=== PATIENT | female | born 1930 | race Caucasian/White ===

== ENCOUNTER 2017-01-29 10:54 | Inpatient (IN) | payer OTHER, MEDICARE ==
[~2017-01-29] VITALS: Ht 149.9 cm; Wt 54.0 kg
[~2017-01-29 10:54] MED LIST: ANTIVERT25 MG PO; ATIVAN0.5 MG PO; ATORVASTATIN CA10 MG PO; BACTRIM,SEPT1 TABLE1 PO; HYDROCHLOROTHIA25 MG PO; KEFLEX500 MG PO; KLOR-CON20 MEQ PO; LISINOPRIL20 MG PO; LORAZEPAM0.5 MG PO; PROTONIX40 MG PO; PYRIDIUM200 MG PO; SYNTHROID25 MCG PO
[2017-01-29 13:33] LABS: EOSINOPHIL (%) 0 % (0-5); HEMATOCRIT 35.2 % (36.0-46.0); IMMATURE GRANULOCYTE (%) 0.2 % (0.0-0.7); INSTRUMENT ABS NEUTROPHIL CT 2.8 K/uL; LYMPHOCYTE COUNT 0.8 K/uL (1.0-2.8); MCH 31.9 PG (29.0-34.0); MCHC 34.7 G/DL (30.0-36.0); MCV 91.9 FL (83-99); MEAN PLAT.VOLUME 9.2 uM^3 (9.5-12.4); MONOCYTE (%) 15.2 % (3-12); MONOCYTE COUNT 0.6 K/uL (0-0.8); NEUTROPHIL (%) 66.1 % (45-76); NEUTROPHIL COUNT 2.8 K/uL (1.8-6.4); PLATELET COUNT 153 K/uL (156-360); RBC DIS.WIDTH-CV 12.9 % (11.8-14.6); RBC DIS.WIDTH-SD 43.7 % (39-53); RED BLOOD COUNT 3.83 M/uL (3.80-5.20); WHITE BLOOD COUNT 4.2 K/uL (4.1-10.2)
[2017-01-29 13:41] LABS: CHLORIDE 99 mEq/L (99-109); POTASSIUM 3.9 mEq/L (3.7-5.4); SODIUM 132 mEq/L (136-147)
[2017-01-29 13:43] LABS: GLUCOSE 90 mg/dL (70-99)
[2017-01-29 13:44] LABS: ANION GAP 13 MEQ/L (2-14)
[2017-01-29 13:47] LABS: GFR ESTIMATE (CALCULATED) 30 mL/min/
[2017-01-29 13:48] LABS: UREA NITROGEN (BUN) 28 mg/dL (9-23)
[2017-01-29 13:56] LABS: INFLUENZA A VIRAL ANTIGEN POSITIVE; INFLUENZA B VIRAL ANTIGEN NEGATIVE
[2017-01-29 14:13] LABS: ADD MIUA? YES; BILIRUBIN NEGATIVE; BLOOD NEGATIVE; COLOR AMBER ((YELLOW)); GLUCOSE (STRIP) NEGATIVE; KETONES 5; LEUKOCYTES MODERATE; NITRITE NEGATIVE; PROTEIN (STRIP) 30; SPECIFIC GRAVITY 1.015 (1.000-1.030); UROBILINOGEN 0.2 MG/DL (0.2-1.0)
[2017-01-29 14:34] LABS: BACTERIA 1+ /HPF; EPITHELIAL CELLS RARE /HPF; GRANULAR CASTS 15-20 /LPF; MUCUS TRACE /LPF; RED BLOOD CELLS 0-5 /HPF (0-5); UCUL ADDED? NO; WHITE BLOOD CELLS 30-40 /HPF (0-5)
[2017-01-29] MEDS ORDERED: KLOR-CON M2020 MEQ PO (15:55)
[2017-01-29] MEDS ORDERED: MECLIZINE HCL25 MG PO (15:55)
[2017-01-29] MEDS ORDERED: NEXIUM40 MG PO (15:56)
[2017-01-29] MEDS ORDERED: HYDROCHLOROTHIA50 MG PO (15:56)
[2017-01-29] MEDS ORDERED: VITAMIN D2000 UNI1 PO (15:57)
[2017-01-29] MEDS ORDERED: CALCIUM600 M1 PO (15:57)
[2017-01-29] MEDS ORDERED: CENTRUM SILVER1 EAC3 PO (15:57)
[2017-01-29 17:29] VITALS: BP 91/62
[2017-01-29 19:10] VITALS: BP 126/58
[2017-01-30 00:58] VITALS: BP 137/63
[2017-01-30 07:32] LABS: ANION GAP 10 MEQ/L (2-14); CHLORIDE 100 MEQ/L (99-109); GFR ESTIMATE (CALCULATED) 38 mL/min/; GLUCOSE 99 mg/dL (70-99); POTASSIUM 3.4 MEQ/L (3.7-5.4); SAMPLE HEMOLYSIS CHECK 0; SAMPLE ICTERIC CHECK 0; SAMPLE LIPEMIA CHECK 0; SODIUM 134 MEQ/L (136-147); UREA NITROGEN (BUN) 30 mg/dL (9-23)
[2017-01-30 07:39] VITALS: BP 142/62
[2017-01-30 12:00] VITALS: BP 140/66
[2017-01-30 16:27] VITALS: BP 116/59
[2017-01-30 20:00] VITALS: BP 123/58
[2017-01-31] VITALS (7 sets, daily range): BP systolic 111–132; BP diastolic 58–70
[2017-01-31 12:32] LABS: HEMATOCRIT 33.8 % (36.0-46.0); MCH 31.6 PG (29.0-34.0); MCHC 32.8 G/DL (30.0-36.0); MEAN PLAT.VOLUME 10.1 uM^3 (9.5-12.4); NRBC (%) 0.4 /100 WBC (0-0); PLATELET COUNT 162 K/uL (156-360); RBC DIS.WIDTH-CV 13.5 % (11.8-14.6); RED BLOOD COUNT 3.51 M/uL (3.80-5.20); WHITE BLOOD COUNT 4.8 K/uL (4.1-10.2)
[2017-01-31 13:05] LABS: MCV 96.3 FL (83-99)
[2017-01-31 16:06] LABS: MCH 31.2 PG (29.0-34.0); MCHC 34.4 G/DL (30.0-36.0); MCV 90.7 FL (83-99); MEAN PLAT.VOLUME 9.2 uM^3 (9.5-12.4); PLATELET COUNT 150 K/uL (156-360); RBC DIS.WIDTH-SD 42.9 % (39-53); RED BLOOD COUNT 3.53 M/uL (3.80-5.20)
[2017-01-31 16:15] LABS: ANION GAP 9 MEQ/L (2-14); CHLORIDE 99 MEQ/L (99-109); GFR ESTIMATE (CALCULATED) 56 mL/min/; GLUCOSE 93 mg/dL (70-99); POTASSIUM 2.7 MEQ/L (3.7-5.4); SAMPLE HEMOLYSIS CHECK 0; SAMPLE ICTERIC CHECK 0; SAMPLE LIPEMIA CHECK 0; SODIUM 133 MEQ/L (136-147); UREA NITROGEN (BUN) 18 mg/dL (9-23)
[2017-02-01 03:27] LABS: C DIFF TOXIN NEGATIVE (NEGATIVE)
[2017-02-01 03:34] LABS: PROBE CHECK PASS; SPECIMEN PROCESSING CONTROL PASS
[2017-02-01 04:58] VITALS: BP 148/68
[2017-02-01 07:40] LABS: HEMATOCRIT 34.1 % (36.0-46.0); MCH 31.1 PG (29.0-34.0); MCHC 33.7 G/DL (30.0-36.0); MCV 92.2 FL (83-99); MEAN PLAT.VOLUME 9.2 uM^3 (9.5-12.4); PLATELET COUNT 155 K/uL (156-360); RBC DIS.WIDTH-CV 13.1 % (11.8-14.6); RBC DIS.WIDTH-SD 44.1 % (39-53)
[2017-02-01 07:46] LABS: WHITE BLOOD COUNT 5.8 K/uL (4.1-10.2)
[2017-02-01 08:02] VITALS: BP 148/78
[2017-02-01 08:17] LABS: ANION GAP 7 MEQ/L (2-14); CHLORIDE 105 MEQ/L (99-109); GFR ESTIMATE (CALCULATED) > 59 mL/min/; GLUCOSE 81 mg/dL (70-99); POTASSIUM 3.6 MEQ/L (3.7-5.4); SAMPLE HEMOLYSIS CHECK 0; SAMPLE ICTERIC CHECK 0; SAMPLE LIPEMIA CHECK 0; SODIUM 135 MEQ/L (136-147); UREA NITROGEN (BUN) 14 mg/dL (9-23)
[2017-02-01 16:24] VITALS: BP 152/76
[2017-02-01] MEDS ORDERED: OSELTAMIVIR PHO30 MG PO (18:50)
[2017-02-01 19:00] VITALS: BP 146/78
== END 2017-02-01 20:33 | disposition home or self-care (01) | DRG 690 ==
LOC: EME → EDBD 10:54 → EME 10:54 → EDOF 15:21 → 5WEST 15:21
PROVIDERS: Family Medicine; Physician Assistant; Physician Assistant Medical
DX: N39.0 Urinary tract infection, site not specified (principal); E86.0 Dehydration; J10.1 Influenza due to other identified influenza virus with other respiratory manifestations; E87.6 Hypokalemia; I10 Essential (primary) hypertension; K21.9 Gastro-esophageal reflux disease without esophagitis; M19.90 Unspecified osteoarthritis, unspecified site; R53.1 Weakness
CPT/HCPCS: 71020; 80048; 81003; 85025; 85027; 87086; 87493; 87502; 94640; 99202; 99281; 99285; G0378; J0696; J3480; J7040; J7050

== ENCOUNTER 2017-08-13 13:18 | Inpatient (IN) | payer OTHER, MEDICARE ==
[~2017-08-13] VITALS: Ht 149.9 cm; Wt 54.7 kg
[~2017-08-13 13:18] MED LIST changes: +CALCIUM600 M1 PO; +CENTRUM SILVER1 EAC3 PO; +HYDROCHLOROTHIA50 MG PO; +KLOR-CON M2020 MEQ PO; +MECLIZINE HCL25 MG PO; +NEXIUM40 MG PO; +OSELTAMIVIR PHO30 MG PO; +VITAMIN D2000 UNI1 PO
[2017-08-13 14:22] LABS: HEMATOCRIT 34.4 % (36.0-46.0); MCH 31.5 PG (29.0-34.0); MCHC 35.8 G/DL (30.0-36.0); MCV 88.2 FL (83-99); MEAN PLAT.VOLUME 8.8 uM^3 (9.5-12.4); PLATELET COUNT 284 K/uL (156-360); RBC DIS.WIDTH-CV 13.2 % (11.8-14.6); RBC DIS.WIDTH-SD 42.2 % (39-53); WHITE BLOOD COUNT 8.5 K/uL (4.1-10.2)
[2017-08-13 14:34] LABS: CHLORIDE 96 mEq/L (99-109)
[2017-08-13 14:35] LABS: SODIUM 135 mEq/L (136-147)
[2017-08-13 14:36] LABS: POTASSIUM 2.8 mEq/L (3.7-5.4)
[2017-08-13 14:37] LABS: GLUCOSE 88 mg/dL (70-99)
[2017-08-13 14:38] LABS: ANION GAP 11 MEQ/L (2-14)
[2017-08-13 14:39] LABS: TOTAL BILIRUBIN 1.1 mg/dL (0.0-1.0)
[2017-08-13 14:40] LABS: ALKALINE PHOSPHATASE 89 IU/L (3-129)
[2017-08-13 14:41] LABS: GFR ESTIMATE (CALCULATED) 45 mL/min/
[2017-08-13 14:42] LABS: DIRECT BILIRUBIN 0.4 mg/dL (0.0-0.3); UREA NITROGEN (BUN) 19 mg/dL (9-23)
[2017-08-13 14:43] LABS: TROP-I INTERPRETATION NEGATIVE; TROPONIN-I < 0.01 ng/mL (0.0-0.30)
[2017-08-13 14:44] LABS: LIPASE 49 U/L (1.0-51.0)
[2017-08-13 16:35] LABS: ADD MIUA? NO; BILIRUBIN NEGATIVE; BLOOD NEGATIVE; COLOR YELLOW ((YELLOW)); GLUCOSE (STRIP) NEGATIVE; KETONES NEGATIVE; LEUKOCYTES NEGATIVE; NITRITE NEGATIVE; PROTEIN (STRIP) NEGATIVE; SPECIFIC GRAVITY 1.015 (1.000-1.030); UROBILINOGEN 0.2 MG/DL (0.2-1.0)
[2017-08-14] VITALS (7 sets, daily range): BP systolic 118–167; BP diastolic 60–76
[2017-08-14 05:33] LABS: C DIFF TOXIN POSITIVE (NEGATIVE)
[2017-08-14 05:57] LABS: PROBE CHECK PASS
[2017-08-14 06:08] LABS: EOSINOPHIL (%) 7.9 % (0-5); EOSINOPHIL COUNT 0.7 K/uL (0-0.3); HEMATOCRIT 30.3 % (36.0-46.0); IMMATURE GRANULOCYTE (%) 0.6 % (0.0-0.7); IMMATURE GRANULOCYTE COUNT 0.1 K/uL; INSTRUMENT ABS NEUTROPHIL CT 4.9 K/uL; LYMPHOCYTE COUNT 2.2 K/uL (1.0-2.8); MCH 32.9 PG (29.0-34.0); MCHC 36.3 G/DL (30.0-36.0); MCV 90.7 FL (83-99); MEAN PLAT.VOLUME 8.9 uM^3 (9.5-12.4); MONOCYTE (%) 9.1 % (3-12); MONOCYTE COUNT 0.8 K/uL (0-0.8); NEUTROPHIL (%) 56.9 % (45-76); NEUTROPHIL COUNT 4.9 K/uL (1.8-6.4); PLATELET COUNT 227 K/uL (156-360); RBC DIS.WIDTH-CV 13.4 % (11.8-14.6); RBC DIS.WIDTH-SD 44.1 % (39-53); RED BLOOD COUNT 3.34 M/uL (3.80-5.20); WHITE BLOOD COUNT 8.6 K/uL (4.1-10.2)
[2017-08-14 06:27] LABS: ANION GAP 6 MEQ/L (2-14); CHLORIDE 106 MEQ/L (99-109); GFR ESTIMATE (CALCULATED) 56 mL/min/; GLUCOSE 89 mg/dL (70-99); SAMPLE HEMOLYSIS CHECK 0; SAMPLE ICTERIC CHECK 0; SAMPLE LIPEMIA CHECK 0; SODIUM 138 MEQ/L (136-147); UREA NITROGEN (BUN) 14 mg/dL (9-23)
[2017-08-14 06:33] LABS: POTASSIUM 4.5 MEQ/L (3.7-5.4)
[2017-08-14] MEDS ORDERED: ATORVASTATIN CA10 MG PO (09:22)
[2017-08-14] MEDS ORDERED: LEVAQUIN250 MG PO (09:22)
[2017-08-14] MEDS ORDERED: HYDROCHLOROTHIA50 MG PO (09:22)
[2017-08-14] MEDS ORDERED: MACRODANTIN50 M1 PO (09:22)
[2017-08-14] MEDS ORDERED: NEXIUM40 MG PO (09:22)
[2017-08-14] MEDS ORDERED: LISINOPRIL20 MG PO (09:23)
[2017-08-14] MEDS ORDERED: KLOR-CON M2020 MEQ PO (09:23)
[2017-08-14] MEDS ORDERED: LEVOTHYROXINE25 MCG PO (09:23)
[2017-08-15 06:31] LABS: ANION GAP 7 MEQ/L (2-14); CHLORIDE 105 MEQ/L (99-109); GFR ESTIMATE (CALCULATED) > 59 mL/min/; GLUCOSE 82 mg/dL (70-99); POTASSIUM 3.7 MEQ/L (3.7-5.4); SAMPLE HEMOLYSIS CHECK 0; SAMPLE ICTERIC CHECK 0; SAMPLE LIPEMIA CHECK 0; SODIUM 136 MEQ/L (136-147); UREA NITROGEN (BUN) 14 mg/dL (9-23)
[2017-08-15 08:00] VITALS: BP 142/68
[2017-08-15 16:00] VITALS: BP 118/78
[2017-08-16 06:19] LABS: EOSINOPHIL (%) 9.7 % (0-5); EOSINOPHIL COUNT 0.8 K/uL (0-0.3); HEMATOCRIT 28.8 % (36.0-46.0); IMMATURE GRANULOCYTE (%) 0.4 % (0.0-0.7); INSTRUMENT ABS NEUTROPHIL CT 4.7 K/uL; LYMPHOCYTE COUNT 1.6 K/uL (1.0-2.8); MCH 31.4 PG (29.0-34.0); MCHC 35.1 G/DL (30.0-36.0); MCV 89.4 FL (83-99); MEAN PLAT.VOLUME 8.7 uM^3 (9.5-12.4); MONOCYTE (%) 8.4 % (3-12); MONOCYTE COUNT 0.7 K/uL (0-0.8); NEUTROPHIL (%) 60.1 % (45-76); NEUTROPHIL COUNT 4.7 K/uL (1.8-6.4); PLATELET COUNT 179 K/uL (156-360); RBC DIS.WIDTH-CV 13.2 % (11.8-14.6); RBC DIS.WIDTH-SD 43.6 % (39-53); RED BLOOD COUNT 3.22 M/uL (3.80-5.20); WHITE BLOOD COUNT 7.8 K/uL (4.1-10.2)
[2017-08-16 06:47] LABS: ANION GAP 7 MEQ/L (2-14); CHLORIDE 107 MEQ/L (99-109); GFR ESTIMATE (CALCULATED) > 59 mL/min/; GLUCOSE 87 mg/dL (70-99); POTASSIUM 3.6 MEQ/L (3.7-5.4); SAMPLE HEMOLYSIS CHECK 0; SAMPLE ICTERIC CHECK 0; SAMPLE LIPEMIA CHECK 0; SODIUM 138 MEQ/L (136-147); UREA NITROGEN (BUN) 9 mg/dL (9-23)
[2017-08-16 07:38] VITALS: BP 132/72
[2017-08-16 15:26] VITALS: BP 128/70
[2017-08-16 20:30] VITALS: BP 127/31
[2017-08-16 21:54] VITALS: BP 127/31
[2017-08-16 23:30] VITALS: BP 165/72
[2017-08-17 07:36] VITALS: BP 125/31
[2017-08-17 15:42] VITALS: BP 124/30
[2017-08-17 23:00] VITALS: BP 167/78
[2017-08-18 06:37] LABS: EOSINOPHIL (%) 7.9 % (0-5); EOSINOPHIL COUNT 0.7 K/uL (0-0.3); HEMATOCRIT 28.8 % (36.0-46.0); IMMATURE GRANULOCYTE (%) 0.4 % (0.0-0.7); INSTRUMENT ABS NEUTROPHIL CT 5.2 K/uL; LYMPHOCYTE COUNT 1.8 K/uL (1.0-2.8); MCH 31.3 PG (29.0-34.0); MCHC 34.4 G/DL (30.0-36.0); MCV 91.1 FL (83-99); MEAN PLAT.VOLUME 8.9 uM^3 (9.5-12.4); MONOCYTE (%) 8.1 % (3-12); MONOCYTE COUNT 0.7 K/uL (0-0.8); NEUTROPHIL (%) 61.9 % (45-76); NEUTROPHIL COUNT 5.2 K/uL (1.8-6.4); PLATELET COUNT 184 K/uL (156-360); RBC DIS.WIDTH-CV 13.9 % (11.8-14.6); RBC DIS.WIDTH-SD 45.9 % (39-53); RED BLOOD COUNT 3.16 M/uL (3.80-5.20); WHITE BLOOD COUNT 8.4 K/uL (4.1-10.2)
[2017-08-18 07:05] LABS: ALKALINE PHOSPHATASE 59 IU/L (3-129); ANION GAP 8 MEQ/L (2-14); CHLORIDE 107 MEQ/L (99-109); GFR ESTIMATE (CALCULATED) > 59 mL/min/; GLUCOSE 81 mg/dL (70-99); POTASSIUM 3.9 MEQ/L (3.7-5.4); SAMPLE HEMOLYSIS CHECK 0; SAMPLE ICTERIC CHECK 0; SAMPLE LIPEMIA CHECK 0; SODIUM 138 MEQ/L (136-147); UREA NITROGEN (BUN) 8 mg/dL (9-23)
[2017-08-18 07:39] VITALS: BP 142/80
[2017-08-18 13:47] VITALS: BP 137/78
[2017-08-18 17:31] VITALS: BP 136/76
[2017-08-19 06:13] LABS: HEMATOCRIT 29.1 % (36.0-46.0); MCH 31.4 PG (29.0-34.0); MCHC 34.7 G/DL (30.0-36.0); MCV 90.4 FL (83-99); MEAN PLAT.VOLUME 8.7 uM^3 (9.5-12.4); PLATELET COUNT 193 K/uL (156-360); RBC DIS.WIDTH-CV 13.7 % (11.8-14.6); RBC DIS.WIDTH-SD 44.9 % (39-53); RED BLOOD COUNT 3.22 M/uL (3.80-5.20); WHITE BLOOD COUNT 8.8 K/uL (4.1-10.2)
[2017-08-19 06:41] LABS: ANION GAP 7 MEQ/L (2-14); CHLORIDE 106 MEQ/L (99-109); GFR ESTIMATE (CALCULATED) > 59 mL/min/; GLUCOSE 82 mg/dL (70-99); POTASSIUM 3.9 MEQ/L (3.7-5.4); SAMPLE HEMOLYSIS CHECK 0; SAMPLE ICTERIC CHECK 0; SAMPLE LIPEMIA CHECK 0; SODIUM 136 MEQ/L (136-147); UREA NITROGEN (BUN) 6 mg/dL (9-23)
[2017-08-19 08:22] VITALS: BP 149/70
[2017-08-19] MEDS ORDERED: METRONIDAZOLE500 MG PO (10:07)
[2017-08-19] MEDS ORDERED: LOVENOX30 MG/0.3 SC (10:08)
== END 2017-08-19 13:35 | DRG 641 ==
LOC: EME 13:18 → EXP 13:18 → 5EAST 18:21 → EDOF 18:21 → ENRESERV 18:29 → 5EAST 23:55 → ENPENDDIS 08-19 → EDPENDDISTM 08-19 13:30 → 5EAST 08-19 13:35
PROVIDERS: Family Medicine; Physician Assistant
DX: E87.6 Hypokalemia (principal); A04.72 Enterocolitis due to Clostridium difficile, not specified as recurrent; D64.9 Anemia, unspecified; E03.9 Hypothyroidism, unspecified; E78.5 Hyperlipidemia, unspecified; E86.0 Dehydration; J20.9 Acute bronchitis, unspecified; F41.9 Anxiety disorder, unspecified; I10 Essential (primary) hypertension; Z60.2 Problems related to living alone; K21.9 Gastro-esophageal reflux disease without esophagitis; Z80.7 Family history of other malignant neoplasms of lymphoid, hematopoietic and related tissues; Z87.440 Personal history of urinary (tract) infections
CPT/HCPCS: 71020; 80048; 80053; 80076; 81003; 83605; 83690; 84484; 85025; 85027; 87493; 93005; 99281; 99285; G0378; J1650; J2405; J3480; J7030

== ENCOUNTER 2017-11-14 08:59 | Inpatient (IN) | payer OTHER ==
[~2017-11-14] VITALS: Ht 149.9 cm; Wt 51.5 kg
[~2017-11-14 08:59] MED LIST changes: +Calcium + Vit D PO; +K-DUR20 MEQ PO; +LEVAQUIN250 MG PO; +LEVOTHYROXINE25 MCG PO; +LOVENOX30 MG/0.3 SC; +MACRODANTIN50 M1 PO; +METRONIDAZOLE500 MG PO; +MULTIVITAMIN1 EAC2 PO; +ZOLOFT50 MG PO
[2017-11-14 10:42] LABS: BASOPHIL (%) 0.2 % (0-1); EOSINOPHIL (%) 0.1 % (0-5); HEMATOCRIT 36.8 % (36.0-46.0); HEMOGLOBIN 13.1 G/DL (11.9-15.5); IMMATURE GRANULOCYTE (%) 0.4 % (0.0-0.7); LYMPHOCYTE (%) 9.7 % (15-42); LYMPHOCYTE COUNT 1.1 K/uL (1.0-2.8); MCH 32.1 PG (29.0-34.0); MCHC 35.6 G/DL (30.0-36.0); MCV 90.2 FL (83-99); MONOCYTE (%) 7.7 % (3-12); MONOCYTE COUNT 0.9 K/uL (0-0.8); NEUTROPHIL (%) 81.9 % (45-76); NEUTROPHIL COUNT 9.7 K/uL (1.8-6.4); PLATELET COUNT 267 K/uL (156-360); RBC DIS.WIDTH-CV 13.2 % (11.8-14.6); RBC DIS.WIDTH-SD 43.7 % (39-53); RED BLOOD COUNT 4.08 M/uL (3.80-5.20); WHITE BLOOD COUNT 11.8 K/uL (4.1-10.2)
[2017-11-14 10:50] LABS: CHLORIDE 100 mEq/L (99-109); POTASSIUM 3.5 mEq/L (3.7-5.4); SODIUM 136 mEq/L (136-147)
[2017-11-14 10:51] LABS: GLUCOSE 111 mg/dL (70-99)
[2017-11-14 10:55] LABS: CREATININE 0.8 mg/dL (0.6-1.3); GFR ESTIMATE (CALCULATED) > 59 mL/min/
[2017-11-14 10:56] LABS: UREA NITROGEN (BUN) 12 mg/dL (9-23)
[2017-11-14 11:02] LABS: TROP-I INTERPRETATION NEGATIVE; TROPONIN-I < 0.01 ng/mL (0.0-0.30)
[2017-11-14 18:31] VITALS: BP 200/83
[2017-11-14 22:44] VITALS: BP 183/74
[2017-11-15 07:35] VITALS: BP 186/79
[2017-11-15 15:46] VITALS: BP 144/81
[2017-11-16 06:31] LABS: BASOPHIL (%) 0.3 % (0-1); EOSINOPHIL (%) 0.8 % (0-5); EOSINOPHIL COUNT 0.1 K/uL (0-0.3); HEMATOCRIT 35.7 % (36.0-46.0); HEMOGLOBIN 12.7 G/DL (11.9-15.5); IMMATURE GRANULOCYTE (%) 0.5 % (0.0-0.7); LYMPHOCYTE (%) 17.1 % (15-42); LYMPHOCYTE COUNT 1.7 K/uL (1.0-2.8); MCH 32.6 PG (29.0-34.0); MCHC 35.6 G/DL (30.0-36.0); MCV 91.5 FL (83-99); MONOCYTE (%) 9.7 % (3-12); NEUTROPHIL (%) 71.6 % (45-76); NEUTROPHIL COUNT 7.2 K/uL (1.8-6.4); PLATELET COUNT 238 K/uL (156-360); RBC DIS.WIDTH-CV 13.3 % (11.8-14.6); RBC DIS.WIDTH-SD 44.5 % (39-53)
[2017-11-16 06:47] LABS: CHLORIDE 98 MEQ/L (99-109); CREATININE 0.8 MG/DL (0.6-1.3); GFR ESTIMATE (CALCULATED) > 59 mL/min/; GLUCOSE 104 mg/dL (70-99); POTASSIUM 3.5 MEQ/L (3.7-5.4); SODIUM 135 MEQ/L (136-147); UREA NITROGEN (BUN) 15 mg/dL (9-23)
[2017-11-16 08:46] VITALS: BP 152/80
[2017-11-16 17:12] VITALS: BP 185/84
[2017-11-16 20:27] VITALS: BP 160/80
[2017-11-16 22:36] VITALS: BP 169/76
[2017-11-17 08:29] VITALS: BP 160/70
[2017-11-17 15:00] VITALS: BP 145/72
== END 2017-11-17 17:16 | disposition hospice, home (50) | DRG 185 ==
LOC: EME 08:59 → EDOF 15:27 → 5EAST 15:27 → ENRESERV 17:26 → CANRESERV 17:47 → ENRESERV 18:17 → 5EAST 18:26
PROVIDERS: Emergency Medicine; Family Medicine
DX: S22.49XA Multiple fractures of ribs, unspecified side, initial encounter for closed fracture (principal); W19.XXXA Unspecified fall, initial encounter; I10 Essential (primary) hypertension; Z51.5 Encounter for palliative care; I25.10 Atherosclerotic heart disease of native coronary artery without angina pectoris; E06.9 Thyroiditis, unspecified; E78.5 Hyperlipidemia, unspecified; F41.9 Anxiety disorder, unspecified; E03.9 Hypothyroidism, unspecified; K21.9 Gastro-esophageal reflux disease without esophagitis; Z66 Do not resuscitate; Z80.7 Family history of other malignant neoplasms of lymphoid, hematopoietic and related tissues; Z87.440 Personal history of urinary (tract) infections; Z82.3 Family history of stroke; Z91.81 History of falling; Z93.3 Colostomy status
CPT/HCPCS: 70450; 71045; 71100; 71260; 73130; 74177; 80048; 84484; 85025; 93005; 99281; 99285; J2270; J7030